=== PATIENT | male | born 1945 | race Caucasian/White ===

== ENCOUNTER 2019-03-15 19:26 | Emergency (ER) | payer BC ==
[2019-03-15] MEDS ORDERED: 0.9 % SODIUM CHLORIDE 1000ML 1,000 ML IV SCH (19:30)
[2019-03-15] MEDS ORDERED: ONDANSETRON HCL IV 4 MG/2 ML VIAL IVP ONE (19:30)
[2019-03-15] MEDS ORDERED: HYDROMORPHONE HCL 2 MG/ML VIAL IVP ONE ×2 (19:30→20:36)
--- NOTE | 2019-03-15 19:39 | Emergency Department Record ---
History of Present Illness - General Chief complaint: Extremity Problem Stated complaint: L HIP LOCKED UP Time Seen by Provider: 03/15/19 19:30 Source: Patient, EMS Mode of Arrival: EMS Limitations: No limitations - History of Present Illness Initial comments: 73 yo male presents to ED for evaluation of left hip pain described as "sharp" that began while out working in his garage this evening. Patient reports a history of previous total hip replacement with Dr. Baires s/p revision for ongoing pain symptoms, reports that he turned to grab an item on his work bench when the pain "shot up my body", reports the hip "locked up". Patient denies previous dislocations, denies specific injury or trauma this evening prior to arrival. Patient denies numbness/tingling symptoms. MD Complaint: Joint pain Onset/Timin -: Minutes(s) Location: Left History of Same: No -: Yes Arthralgia Radiation: Proximal Quality: Aching Consistency: Constant Improves with: Immobilization Worsens with: Other (Movement of the left hip) Associated Symptoms: Denies other symptoms - Related Data Home Medications Medication Instructions Recorded Confirmed Last Taken Allopurinol 100 mg PO DAILY 03/15/19 03/15/19 03/15/19 Amlodipine Besylate 5 mg PO DAILY 03/15/19 03/15/19 03/15/19 Atenolol 50 mg PO DAILY 03/15/19 03/15/19 03/15/19 Glimepiride [Amaryl] 4 mg PO DAILY 03/15/19 03/15/19 03/15/19 Insulin Aspart [Novolog Flexpen] 3 - 4 units SQ ASDIR 03/15/19 03/15/19 03/15/19 Insulin Glargine,Hum.rec.anlog 30 unit SQ DAILY 03/15/19 03/15/19 03/15/19 [Lantus Solostar] Losartan Potassium 50 mg PO BID 03/15/19 03/15/19 03/15/19 Metformin HCl 500 mg PO BID 03/15/19 03/15/19 03/15/19 Tramadol HCl [Ultram] 50 mg PO Q6H 03/15/19 03/15/19 03/15/19 Allergies Allergy/AdvReac Type Severity Reaction Status Date / Time No Known Drug Allergies Allergy Verified 03/15/19 19:38 Review of Systems Constitutional: Denies: Chills, Fever, Malaise, Night sweats Eyes: Denies: Eye discharge, Eye pain ENT: Denies: Congestion, Ear pain, Epistaxis Respiratory: Denies: Cough, Dyspnea Cardiovascular: Denies: Chest pain, Dyspnea on exertion Endocrine: Denies: Fatigue, Heat or cold intolerance Gastrointestinal: Denies: Abdominal pain, Nausea, Vomiting Genitourinary: Denies: Incontinence, Retention Musculoskeletal: Reports: Arthralgia. Denies: Back pain, Gout, Joint swelling Skin: Denies: Bruising, Change in color Neurological: Denies: Confusion, Headache, Numbness, Seizure Psychiatric: Denies: Anxiety Hematological/Lymphatic: Denies: Anemia, Blood Clots Physical Exam - General General Appearance: Alert, Oriented x3, Cooperative, Moderate distress (due to pain symptoms, shortening of the left lower extremity is present on examination) Limitations: No limitations - Head Head exam: Atraumatic, Normocephalic, Normal inspection Head exam detail: negative: Abrasion, Contusion, Berkowitz's sign, General tenderness, Hematoma, Laceration - Eye Eye exam: Normal appearance. negative: Conjunctival injection, Periorbital swelling, Periorbital tenderness, Scleral icterus - ENT Ear exam: negative: Auricular hematoma, Auricular trauma Nasal Exam: negative: Active bleeding, Discharge, Dried blood, Foreign body Mouth exam: negative: Drooling, Laceration, Muffled voice, Tongue elevation - Neck Neck exam: Normal inspection. negative: Meningismus, Tenderness - Respiratory Respiratory exam: Normal lung sounds bilaterally. negative: Respiratory distress, Rhonchi, Stridor, Wheezes - Cardiovascular Cardiovascular Exam: Regular rate, Normal rhythm, Normal heart sounds Peripheral Pulses: 3+: Dorsalis Pedis (L) - GI/Abdominal GI/Abdominal exam: Soft. negative: Rebound, Rigid, Tenderness - Rectal Rectal exam: Deferred - exam: Deferred - Extremities Extremities exam: Tenderness (TTP to the left proximal hip on examination, significant shortening is present of the LLE, strong DPP present.). negative: Calf tenderness, Pedal edema - Back Back exam: Denies: CVA tenderness (R), CVA tenderness (L) - Neurological Neurological exam: Alert - Psychiatric Psychiatric exam: Normal affect, Normal mood - Skin Skin exam: Normal color. negative: Abrasion Type of lesion: negative: abrasion Course - Reevaluation(s) Reevaluation #1: 03/15/19 20:37 Left hip radiographs were reviewed, no evidence for dislocation. Reviewed with the patient and his Grand Daughter. Appears c/w hardware malfunction. Will await radiology interpretation for disposition. Additional analgesia ordered as well. Reevaluation #2: 03/15/19 21:08 Left Hip: Possible hardware fracture Possible non-diplaced fracture proximal femur Patient and his daughter were updated on all results, prefers transfer to [facility] for orthopedic consultation. On-call for Dr. Baires was paged for consultation. Reevaluation #3: 03/15/19 21:38 Case was discussed with Ortho resident, will review radiographs and return call with likely transfer to [facility] ER for evaluation. Reevaluation #4: 03/15/19 22:01 Case was discussed with Dr. Craven, will accept transfer for orthopedic consultation. Disposition Disposition: Transfer Clinical Impression: Femur fracture, left Qualifiers: Encounter type: initial encounter Femur location: unspecified portion of femur Fracture type: closed Fracture morphology: other fracture Qualified Code(s): S72.8X2A - Other fracture of left femur, initial encounter for closed fracture Disposition: Acute Care Hospital Transfer Transfer To: [facility] Reason For Transfer: Orhtopedica consultation Accepting Physician: Herber Time Discussed w/Accepting Physician: 22:02 Condition: (2) Stable Forms: Patient Portal Access Time of Disposition: 22:02 Quality - Quality Measures Quality Measures: N/A - Blood Pressure Screening Does Patient Have Any of the Following: No Blood Pressure Classification: Pre-Hypertensive BP Reading Systolic Measurement: 173 Diastolic Measurement: 86 Screening for High Blood Pressure: < Pre-Hypertensive BP, F/U Documented > [ [id number]] Pre-Hypertensive Follow-up Interventions: Referral to alternative/primary care provider.
== END 2019-03-15 22:45 | disposition short-term general hospital (02) ==
LOC: ER 19:26
DX: T84.011A Broken internal left hip prosthesis, initial encounter (principal); I10 Essential (primary) hypertension; E11.9 Type 2 diabetes mellitus without complications; Z79.4 Long term (current) use of insulin; X50.0XXA Overexertion from strenuous movement or load, initial encounter; Y92.008 Other place in unspecified non-institutional (private) residence as the place of occurrence of the external cause; Z87.891 Personal history of nicotine dependence
CPT/HCPCS: 51702; 99285 ×2; 96376; 96374; 96375; 73502; J2405; J1170; J7030